=== PATIENT | female | born 1985 | race Caucasian/White ===

== ENCOUNTER 2017-03-15 22:10 | Emergency (ER) | payer BC ==
[~2017-03-15] VITALS: Ht 157.5 cm; Wt 114.1 kg
[2017-03-15 22:27] VITALS: Ht 157.5 cm; Wt 114.1 kg
[2017-03-15] MEDS ORDERED: BEN25 PO (23:02)
[2017-03-15] MEDS ORDERED: TR1B60 TOP (23:02)
[2017-03-15] MEDS ORDERED: FAMO-96 PO (23:02)
--- NOTE | 2017-03-15 23:05 | ERD ---
ER Documentation Chief Complaint Chief Complaint itchy rashes on her arms today, hx DM HPI Patient is a 31-year-old female who presents with itchy rash on her bilateral upper extremities and back that she has had since today. Irritants she can think of. No fever. No swelling of the lip or tongue. Patient takes it may be bedbugs as they just moved into a new apartment however her partner who sleeps in the same bed with her does not have rash or itchiness. No medications have been taken. ROS All systems reviewed and are negative except as per history of present illness. Medications Home Meds Active Scripts Triamcinolone Acetonide (Triamcinolone Acetonide) 0.1% - 60 Ml Lotion, 1 APPLIC TOP BID, #1 BOTTLE Prov:MARIJA DAY PA-C 03/15/17 Famotidine* (Pepcid*) 20 Mg Tablet, 20 MG PO BID for 4 Days, #20 TAB Prov:MARIJA DAY PA-C 03/15/17 Diphenhydramine Hcl* (Benadryl*) 25 Mg Cap, 25 MG PO Q6, #30 CAP Prov:MARIJA DAY PA-C 03/15/17 Allergies Allergies: Coded Allergies: pork derived (porcine) (Verified Allergy, Unknown, 03/15/17) FmHx Family History: diabetes Physical Exam Vitals Vital Signs Date Time Temp Pulse Resp B/P Pulse Ox O2 Delivery O2 Flow Rate FiO2 03/15/17 22:27 98.4 98 18 126/85 100 Physical Exam Const: [] Head: Atraumatic Eyes: Normal Conjunctiva ENT: Normal External Ears, Nose and Mouth. Neck: Full range of motion..~ No meningismus. Resp: Clear to auscultation bilaterally Cardio: Regular rate and rhythm, no murmurs Abd: Soft, non tender, non distended. Normal bowel sounds Skin: Hives on upper extremities and scant on the back upper back Procedures/MDM Patient presents with a rash. Patients is alert, oriented, well appearing, and in no distress with normal vital signs. There is no fever, tachycardia, or tachypnea. Rash does appear to be allergic in nature. She is diabetic so did not want to give her any steroids orally but she was given triamcinolone cream, Pepcid, and Benadryl. Patient counseled regarding my diagnostic impression and care plan. Prior to discharge all questions answered. Pt agrees with treatment plan and understands strict return precautions. Pt is instructed to follow up with primary care provider within 24-48 hours. Precautionary instructions provided including instructions to return to the ER if not improving or for any worsening or changing symptoms or concerns. Departure Diagnosis: Primary Impression: Rash Condition: Stable Patient Instructions: Self-Care for Skin Rashes Additional Instructions: Call your primary care doctor TOMORROW for an appointment during the next 1-2 days.See the doctor sooner or return here if your condition worsens before your appointment time. MARIJA DAY PA-C Mar 15, 2017 23:05
== END 2017-03-15 23:37 | disposition home or self-care (01) ==
LOC: FTE 22:10
DX: R21 Rash and other nonspecific skin eruption (principal)
CPT/HCPCS: 99283

== ENCOUNTER 2017-06-18 21:34 | Emergency (ER) | END 2017-06-19 01:00 | disposition home or self-care (01) ==